=== PATIENT | female | born 1965 | race Caucasian/White ===

== ENCOUNTER 2023-05-17 09:47 | Outpatient (AMB) | payer OTHER, SELFPAY ==
--- NOTE | 2023-05-17 09:51 | A.OFFVIS_ITS ---
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 Pt states she fell about 2 weeks ago and landed on her left knee. Pt states she is still having mild discomfort. Her discomfort has gotten somewhat better over the last few days. She also reports intermittent discomfort in her left wrist. She denies any locking or giving way.. Pt states she has tried ice,heat, and ibuprofen with minimal relief. Pt states she has had a total left knee replacement more than [address] Zayas. The patient states that she has had a feeling of ?instability? in her left knee since her surgery several years ago. Allergies No Known Allergies [No Known Allergies*] Allergy (Unverified 05/17/23 09:52) Medication List - Last Reconciled 05/17/23 by Dean Monaco MD acyclovir mg PO bupropion HCl mg PO cetirizine 10 mg PO DAILY clotrimazole 1% appl topical DAILY colestipol 1 g PO BID gabapentin mg PO ibuprofen mg PO PFSH Surgical History (Updated 05/17/23 @ 09:54 by Stephanie Gupta MA) Hx of total knee replacement Family History (Updated 05/17/23 @ 09:54 by Stephanie Gupta MA) Father Prostate cancer Social History (Updated 05/17/23 @ 09:53 by Stephanie Gupta MA) Household Members: Spouse and Children Housing: House Alcohol intake: current Alcohol intake frequency: holidays/special occasions only Alcohol type: wine Patient Tobacco Use Status: Never used Tobacco Use of substances other than those prescribed or required for medical reasons: No Current occupational status: disabled Current occupation: left hand dominant Physical Exam Const Other: Well-nourished well-developed very friendly female awake alert and oriented x3 in no acute distress Extrem Other: Bilateral upper extremity examination shows good capillary refill, no skin lesions noted, normal sensation light touch Left wrist examination shows full range of motion when compared to her right wrist, no tenderness over her scaphoid, no crepitus with range of motion, no swelling Left knee examination shows that the surgical incision is well healed, no erythema, no signs of infection, there are small abrasions along the mid aspect of her lower leg as well as a mild amount of ecchymosis around the lateral aspect of her calf musculature, full active extension and flexion to 100 degrees, her patella tracks well Results Reviewed Results Reviewed: X-rays of the patient's left wrist taken today show no acute bony abnormalities X-rays of the patient's left knee taken today show a total knee arthroplasty in good position with no signs of loosening, no acute bony abnormalities Assessment & Plan Assessment & Plan (1) Left wrist pain: Code(s): M25.532 - Pain in left wrist Plan: Ms. De Jesus presents with left knee discomfort and left wrist discomfort after a recent fall most likely due to soft tissue and bony contusion. She does not have any evidence of acute bony abnormalities or damage to her total knee arthroplasty. I did have her fitted with a left knee brace to help with her chronic symptoms of instability. I do feel that the brace is a medical necessity to help prevent further falls. Patient will follow up with me on an as-needed basis should her symptoms not resolve over the next few weeks. Feel free to call me at any time should questions regarding her orthopedic management arise. I spent 22 minutes in reviewing the patient's records and imaging studies, seeing the patient and documenting in the medical record. (2) Left knee pain: Code(s): M25.562 - Pain in left knee Orders: Orders XR wrist LT w scaphoid Today M25.532 - Pain in left wrist XR knee LT 3V Today M25.562 - Pain in left knee Medications: New tramadol 50 mg PO Q12H PRN 30 tabs 0RF pain Coding Level of Care Code New Pt Level 2 (01052) Diagnoses Left wrist pain M25.532 Left knee pain M25.562
== END 2023-05-17 10:42 | disposition home or self-care (01) ==
PROVIDERS: PCP Internal Medicine; Visit Provider Orthopaedic Surgery
DX: M25.532 Pain in left wrist (principal); M25.562 Pain in left knee
CPT/HCPCS: 99202

== ENCOUNTER 2023-05-17 09:47 | Outpatient (REF) | payer MEDICARE, MEDICAID, SELFPAY ==
--- NOTE | ~2023-05-17 | XR_ITS ---
EXAMINATION: XR WRIST, LEFT CLINICAL INFORMATION: Pain in left wrist COMPARISON: None available. TECHNIQUE: PA, lateral, and oblique views of the left wrist. FINDINGS: The bones are intact. No fracture. Alignment is anatomic with normal joint spaces. There is a 0.35 cm sclerotic density surrounded by a lucent rim in the capitate. This is of uncertain clinical significance. XR/XR wrist LT w scaphoid IMPRESSION: 1. No acute bony abnormality. 2. 0.35 cm sclerotic density surrounded by a lucent rim in the capitate. This is of uncertain clinical significance.
--- NOTE | ~2023-05-17 | XR_ITS ---
EXAMINATION: XR KNEE, LEFT CLINICAL INFORMATION: Left knee pain COMPARISON: None available. TECHNIQUE: Three views of the left knee. FINDINGS: No significant joint effusion. Status post total knee arthroplasty. Hardware appears intact. XR/XR knee LT 3V IMPRESSION: Left total knee arthroplasty. Hardware appears intact.
== END 2023-05-17 09:48 | disposition home or self-care (01) ==
LOC: HO.HOSX 09:47
PROVIDERS: PCP Internal Medicine; Visit Provider Orthopaedic Surgery
DX: M25.532 Pain in left wrist (principal); M25.562 Pain in left knee
CPT/HCPCS: 73110; 73562; 99202